=== PATIENT | male | born 1940 | race Caucasian/White ===

== ENCOUNTER 2023-08-22 09:20 | Outpatient (OUT) | payer MEDICARE, SELFPAY ==
--- NOTE | 2023-08-22 09:29 | US_ITS ---
[address] [address] Patient Name: ANGELI MARIN MRN: [id number] date: 1940 Sex: M Assigned Patient Location: Current Patient Location: US Accession/Order Number: [id number] Exam Date: 08/22/2023 09:30 Report Date: 08/22/2023 12:15 At the request of: VIDA BOOKER Procedure: US abdomen complete EXAM: US abdomen complete EXAM DATE: 08/22/2023 7:30 AM MDT COMPARISON: None available. INDICATION: Weight loss R63.4, loose stool R19.51 Abdomen pain R10.9 FINDINGS: Hepatic parenchyma is homogeneous. No focal hepatic lesion observed. Splenic parenchyma is contains punctate echogenic foci suggestive of healed/chronic granulomas. Pancreas is subvisualized due to bowel gas. Visualized hepatic parenchyma appears homogeneous. Kidneys are without hydronephrosis. Gallbladder contains dependent shadowing material measuring approximately 1.8 x 1.5 x 1.3 cm, compatible with stones. No gallbladder wall thickening or pericholecystic fluid. Gallbladder wall measures 1.8 mm in thickness. Sonographic Watson's sign is absent. No bile duct dilation. Common bile duct measures 2.5 mm in diameter. Portal vein is patent with hepatopedal flow. No free fluid identified. Dimensions- Liver measures 16 cm in length. Spleen: 10.1 x 5.6 x 9.8 cm (289 mL). Right kidney: 9.5 x 5.5 x 4.3 cm (115 mL). Left kidney: 9.6 x 4.5 x 4.6 cm (106 mL). US/US abdomen complete IMPRESSION: 1. Cholelithiasis. No secondary sonographic features of acute cholecystitis. Sonographic Watson's sign is absent. 2. Subvisualized pancreas. 3. No hydronephrosis. 4. Punctate splenic granulomas. Electronically authenticated by: MK MAE Date: 08/22/2023 12:15
== END 2023-08-22 09:21 | disposition home or self-care (01) ==
PROVIDERS: PCP Family Medicine; Visit Provider Nurse Practitioner
DX: R63.4 Abnormal weight loss (principal); R19.7 Diarrhea, unspecified; R14.3 Flatulence; R10.9 Unspecified abdominal pain; K80.20 Calculus of gallbladder without cholecystitis without obstruction
CPT/HCPCS: 76700

== ENCOUNTER 2024-01-29 08:27 | Emergency (ER) | payer MEDICARE, SELFPAY ==
[2024-01-29] VITALS (10 sets, daily range): BP systolic 109–129; BP diastolic 51–68; PULSE 57–81; RESP 12–24; TEMP 36.7; O2SAT 98–100; BMI 20.7
--- NOTE | 2024-01-29 08:38 | XR_ITS ---
The [address] [address] Patient Name: ANGELI MARIN MRN: [id number] date: 1940 Sex: M Assigned Patient Location: ER Current Patient Location: ER Accession/Order Number: [id number] Exam Date: 01/29/2024 08:50 Report Date: 01/29/2024 09:18 At the request of: DARIN STONER Procedure: XR chest 1V EXAMINATION: XR chest 1V HISTORY: chest pain COMPARISON: XR chest 05/13/2021 FINDINGS: LUNGS: Underexpanded lungs with minimal haziness within lung bases. VASCULATURE: No increased pulmonary vasculature. PLEURA: No pneumothorax, effusion, or pleural thickening. CARDIAC: Left chest wall cardiac pacer/AICD. No cardiomegaly or cardiac silhouette abnormality. MEDIASTINUM: No visible mass or adenopathy. BONES: No fracture or visible bone lesion. OTHER: Negative. XR/XR chest 1V IMPRESSION: 1. Trace amount of bibasilar atelectasis or possibly infiltrates. Electronically authenticated by: DIEGO CERVANTES Date: 01/29/2024 09:18
--- NOTE | 2024-01-29 08:38 | ECG_ITS ---
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
[2024-01-29 08:46] LABS: Basophils Percent Auto 0.2 % (0.2-2.0); Eosinophils Absolute Auto 0.1 10^3/uL (0.0-0.7); Eosinophils Percent Auto 1.1 % (0.9-7.0); Hematocrit 33.2 % (42.0-54.0); Hemoglobin 10.9 g/dL (14.0-18.0); Immature Granulocytes Abs Auto 0.05 10^3/uL (0.00-0.03); Immature Granulocytes Pct Auto 0.4 % (0.0-0.5); Lymphocytes Percent Auto 9.2 % (20.5-60.0); Mean Corpuscular HGB Conc 32.8 g/dL (29.9-35.2); Mean Corpuscular Hemoglobin 30.8 pg (25.9-34.0); Mean Corpuscular Volume 93.8 fL (80.0-94.0); Mean Platelet Volume 9.3 fL (9.5-13.5); Monocytes Absolute Auto 0.7 10^3/uL (0.3-0.8); Monocytes Percent Auto 6.5 % (1.7-12.0); Neutrophils Absolute Auto 9.4 10^3/uL (1.4-6.5); Neutrophils Percent Auto 82.6 % (43.0-75.0); Platelet Count 294 10^3/uL (150-450); Red Blood Count 3.54 10^6/uL (4.70-6.10); Red Cell Distribution Width 13.2 % (11.0-15.0); White Blood Count 11.4 10^3/uL (4.0-11.0)
--- NOTE | 2024-01-29 09:00 | ED_ITS ---
HPI - General Adult General Chief complaint: Chest Pain Stated complaint: CHEST PAIN Time Seen by Provider: 01/29/24 08:46 Source: patient Mode of arrival: walk-in Limitations: no limitations History of Present Illness HPI narrative: Patient is a 83-year-old male who is presenting to the ER today with chief complaint of left chest spasm intermittently since earlier this morning. The spasm woke patient up from his sleep. Daughter is at bedside and a good historian. Patient has esophageal cancer. Patient saw Dr. Casper from the oncology team 2 days ago. Patient had a recent PET scan, things are not changing much with his cancer. Patient has lost 5 pounds recently. Patient has a PEG tube. Patient cannot eat or drink anything, patient is spitting up a lot of phlegm consistently secondary to esophageal cancer. Patient lives at home by himself. Daughter is at bedside. 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 Patient has no rash. Patient send no he hesham lifting or twisting. Patient uses his 2 feet to walk around at home. Patient has no fever or chills. No nausea or vomiting. Patient is consistently spitting up phlegm secondary to unable to swallow it. No other extremity complaints. Patient is and daughter wanted to make sure that heart herrera is okay and that is not having a heart attack today. Patient has no cardiac stents. Patient just had a Lexiscan stress test and echocardiogram last week when he was admitted to a hospital in [facility]. 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 Patient was discharged in no acute findings. All systems are negative except as noted/marked. All systems reviewed and otherwise negative. Nurses note and vital signs reviewed and patient is not hypoxic. General: The patient appears well and in no apparent distress. Patient is resting comfortably on cart. Patient is not toxic, lethargic, or listless Skin: Warm, dry, no pallor noted. There is no rash noted. No petechiae, purpura. Head: Normocephalic, atraumatic Eye: Normal conjunctiva, no drainage, EOMI. PERRL Ears, Nose, Mouth, and Throat: oral mucosa is moist. Patient has poor dentition, increased phlegm to his mouth, no signs of acute pathology. Patient is missing multiple teeth. Nares patent. Mouth without vesicles. Cardiovascular: Regular Rate and Rhythm, no murmur, gallop, rub. No reproducible tenderness to palpation to the left anterior chest wall. Respiratory: Patient is in no distress, no accessory muscle use, lungs are clear to auscultation, no wheezing, rales or rhonchi Back: non-tender, no CVA tenderness bilaterally to percussion. No CT LS midline pain GI: no tenderness to palpation, no masses appreciated. No rebound, guarding, or rigidity noted. No distention. Patient has a PEG tube, area around the PEG tube is clean, dry, intact. Musculoskeletal: Patient has full range of motion of all of the extremities, no motor, sensory, or focal neurological deficits Neurological: A&O x4, normal speech Psychiatric: Cooperative Related Data Allergies Allergy/AdvReac Type Severity Reaction Status Date / Time No Known Drug Allergies Allergy Verified 01/29/24 08:34 PFSH PFSH Social History Smoking status: Never smoker Exam Constitutional Vital Signs, click to edit/add: Last Vital Signs Temp 98.0 F 01/29/24 08:34 Pulse 81 01/29/24 08:34 Resp 18 01/29/24 08:34 BP 129/68 01/29/24 08:34 Pulse Ox 100 01/29/24 08:34 O2 Del Method Room Air 01/29/24 08:34 Course Vital Signs Vital signs: Vital Signs Temperature 98.0 F 01/29/24 08:34 Pulse Rate 81 01/29/24 08:34 Respiratory Rate 18 01/29/24 08:34 Blood Pressure 129/68 01/29/24 08:34 Pulse Oximetry 100 01/29/24 08:34 Oxygen Delivery Method Room Air 01/29/24 08:34 Temperature 98.0 F 01/29/24 08:34 Pulse Rate 81 01/29/24 08:34 Respiratory Rate 18 01/29/24 08:34 Blood Pressure 129/68 01/29/24 08:34 Pulse Oximetry 100 01/29/24 08:34 Oxygen Delivery Method Room Air 01/29/24 08:34 Medical Decision Making MDM Narrative Medical decision making narrative: Patient's 2 troponins were negative. Patient chest x-ray, lab work shows no other significant acute abnormalities. Patient will follow-up with his heart doctor and six color press operator at their appointment next week in [place]. Patient will continue medication as prescribed. No questions at discharge. Patient and daughter understand instructions. No acute indication for admission. Lab Data Lab results reviewed: Yes I reviewed the patient's lab results Labs: Lab Results 01/29/24 01/29/24 Range/Units 08:38 09:22 WBC 11.4 H (4.0-11.0) 10^3/uL RBC 3.54 L (4.70-6.10) 10^6/uL Hgb 10.9 L (14.0-18.0) g/dL Hct 33.2 L (42.0-54.0) % MCV 93.8 (80.0-94.0) fL MCH 30.8 (25.9-34.0) pg MCHC 32.8 (29.9-35.2) g/dL RDW 13.2 (11.0-15.0) % Plt Count 294 (150-450) 10^3/uL MPV 9.3 L (9.5-13.5) fL Neut % (Auto) 82.6 H (43.0-75.0) % Lymph % (Auto) 9.2 L (20.5-60.0) % [place] % (Auto) 6.5 (1.7-12.0) % Eos % (Auto) 1.1 (0.9-7.0) % Baso % (Auto) 0.2 (0.2-2.0) % Neut # (Auto) 9.4 H (1.4-6.5) 10^3/uL Lymph # (Auto) 1.0 L (1.2-3.8) 10^3/uL [place] # (Auto) 0.7 (0.3-0.8) 10^3/uL Eos # (Auto) 0.1 (0.0-0.7) 10^3/uL Baso # (Auto) 0.0 (0.0-0.1) 10^3/uL Abs Immat Gran (auto) 0.05 H (0.00-0.03) 10^3/uL Imm/Tot Granulo (auto) 0.4 (0.0-0.5) % Sodium 133 L (136-145) mmol/L Potassium 4.4 (3.5-5.1) mmol/L Chloride 95 L (98-107) mmol/L Carbon Dioxide 31.9 (21.0-32.0) mmol/L Anion Gap 10.5 BUN 29.0 H (7.0-18.0) mg/dL Creatinine 1.02 (0.70-1.30) mg/dL Est GFR ( Amer) >60 (>=60) Est GFR (Non-Af Amer) >60 (>=60) BUN/Creatinine Ratio 28.4 Glucose 166 H (74-106) mg/dL Calcium 9.3 (8.5-10.1) mg/dL Total Bilirubin 0.5 (0.2-1.0) mg/dL AST 22 (15-37) U/L ALT 33 (16-63) U/L Alkaline Phosphatase 157 H (46-116) U/L Troponin I High Sens 4.7 4.3 (4.0-76.1) pg/mL Total Protein 6.8 (6.4-8.2) g/dL Albumin 2.9 L (3.4-5.0) g/dL Globulin 3.9 g/dL Albumin/Globulin Ratio 0.7 Lipase 31.0 (16.0-77.0) U/L ECG Data Attestation: I personally reviewed and interpreted this ECG as follows: (EKG interpretation. Ventricular paced rhythm at 75 beats a minute. Left axis deviation. No acute findings, QTc of 451) Discharge Plan Discharge Stand Alone Forms: Portal Instructions Chief Complaint: Chest Pain Clinical Impression: Atypical chest pain Patient Disposition: Home, Self-Care Time of Disposition Decision: 10:04 Condition: Fair Instructions: Chest Pain (ED) Additional Instructions: Continue medications as prescribed. Make sure that you take your paperwork from your admission last week to your heart doctors at your appointments next week. If any other acute concerns, follow-up with your PCP or return to ER. Referrals: STEPHON CEDENO [Primary Care Provider] - 1 week
[2024-01-29 09:04] LABS: Alanine Aminotransferase 33 U/L (16-63); Albumin Globulin Ratio 0.7; Albumin Level 2.9 g/dL (3.4-5.0); Alkaline Phosphatase 157 U/L (46-116); Anion Gap 10.5; Aspartate Amino Transferase 22 U/L (15-37); BUN Creatinine Ratio 28.4; Bilirubin Total 0.5 mg/dL (0.2-1.0); Calcium 9.3 mg/dL (8.5-10.1); Carbon Dioxide 31.9 mmol/L (21.0-32.0); Chloride 95 mmol/L (98-107); Estimated GFR (African America >60 (>=60); Estimated GFR (Non-African Ame >60 (>=60); Globulin 3.9 g/dL; Glucose 166 mg/dL (74-106); Potassium 4.4 mmol/L (3.5-5.1); Sodium 133 mmol/L (136-145); Total Protein 6.8 g/dL (6.4-8.2); Troponin I High Sensitivity 4.7 pg/mL (4.0-76.1)
[2024-01-29] MEDS: ASPIRIN 81 MG TAB.CHEW 324 MG PO (09:04)
[2024-01-29] MEDS: 0.9 % SODIUM CHLORIDE 500 ML IV (09:05)
[2024-01-29 09:48] LABS: Troponin I High Sensitivity 4.3 pg/mL (4.0-76.1)
== END 2024-01-29 10:29 | disposition home or self-care (01) ==
PROVIDERS: Emergency Provider Emergency Medicine; PCP Family Medicine
DX: R07.89 Other chest pain (principal); C15.9 Malignant neoplasm of esophagus, unspecified; Z93.1 Gastrostomy status
CPT/HCPCS: 36415; 71045; 80053; 83690; 84484; 85025; 93005; 99285